=== PATIENT | female | born 1990 | race Caucasian/White ===

== ENCOUNTER 2024-11-21 05:51 | Inpatient (IN) | payer OTHER ==
[2024-11-21] MEDS ORDERED: Lanolin 100% Cream 7 GM Tube TOP PRN (05:55)
[2024-11-21] MEDS ORDERED: Sodium Chloride 0.9% 10 ML Syringe FLUSH PRN (05:55)
[2024-11-21] MEDS ORDERED: Misoprostol 200 MCG Tab PO PRN (05:55)
[2024-11-21] MEDS ORDERED: Sodium Chloride 0.9% 2.5 ML Syringe FLUSH PRN (05:55)
[2024-11-21] MEDS ORDERED: Methylergonovine 0.2 MG/1 ML Amp IM PRN (05:55)
[2024-11-21] MEDS ORDERED: Tranexamic Acid in NACL,ISO-OS 1,000 MG in Premix Bag 1 BAG IV PRN (05:55)
[2024-11-21] MEDS ORDERED: Water For Irrigation,Sterile 1,000 ML Container IRR PRN (05:55)
[2024-11-21] MEDS ORDERED: Carboprost Tromethamine 250 MCG/1 mL Vial IM PRN (05:55)
[2024-11-21] MEDS ORDERED: Lidocaine 1% 50 ML MDV INJECT PRN (05:55)
[2024-11-21] MEDS ORDERED: Docusate Sodium 100 MG Cap PO PRN (05:55)
[2024-11-21] MEDS ORDERED: Sodium Chloride 0.9% 20 ML SDV IV PRN (05:55)
[2024-11-21] MEDS ORDERED: Benzocaine/Menthol 20%-0.5% Spray 78 GM Cannister TOP PRN (05:55)
[2024-11-21] MEDS ORDERED: Oxytocin 10 Units/1 ML SDV ONE (05:56)
[2024-11-21] MEDS ORDERED: Oxytocin/0.9 % Sodium Chloride 30 UNIT/500 ML BAG ONE (05:56)
[2024-11-21] MEDS ORDERED: Lactated Ringers 1,000 ML IV SCH (06:00)
[2024-11-21] MEDS: Oxytocin/0.9 % Sodium Chloride 30 UNIT/500 ML BAG IV SCH (06:05)
[2024-11-21] MEDS: Misoprostol 200 MCG Tab ONE (06:18)
[2024-11-21] MEDS ORDERED: diphenhydrAMINE 50 MG Cap PO PRN (06:30)
[2024-11-21] MEDS ORDERED: Simethicone 80 MG Tab.Chew PO PRN (06:30)
[2024-11-21] MEDS: Ibuprofen 800 MG Tab PO PRN (08:09)
[2024-11-21] MEDS: Witch Hazel Medicated Pads 40/Jar TOP PRN (08:09)
[2024-11-21 09:10] LABS: HEMATOCRIT 38.2 % (37.0-47.0); MEAN CORPUSCULAR HEMOGLOBIN 28.3 pg (28.0-32.0); MEAN CORPUSCULAR VOLUME 83.2 fL (83.0-99.0); MEAN PLATELET VOLUME 10.6 fL (9.4-12.3); PLATELET COUNT,PLT 240 K/uL (150-400); RED BLOOD CELL COUNT 4.59 M/uL (4.10-5.30); WHITE BLOOD CELL COUNT,WBC 20.17 K/uL (3.9-11.3)
[2024-11-21] MEDS: Acetaminophen 500 MG Tab PO PRN (20:19)
[2024-11-22 05:06] LABS: AMPHETAMINES SCREEN, URINE NEGATIVE (CUTOFF=500); BARBITURATE SCREEN,URINE NEGATIVE (CUTOFF=200); BENZODIAZEPINES SCREEN,URINE NEGATIVE (CUTOFF=150); BUPRENORPHINE SCREEN,URINE NEGATIVE (CUTOFF=10); METHADONE SCREEN, URINE NEGATIVE (CUTOFF=200); METHAMPHETAMINES SCREEN, URINE NEGATIVE (CUTOFF=500); OXYCODONE SCREEN,URINE NEGATIVE (CUT0FF=100); PCP SCREEN,URINE NEGATIVE (CUTOFF=25); THC SCREEN,URINE 20 NG/ML NEGATIVE (CUTOFF=50)
[2024-11-22 05:52] LABS: HEMATOCRIT 37.1 % (37.0-47.0); HEMOGLOBIN 12.6 g/dL (12.0-16.0); MEAN CORPUSCULAR HEMOGLOBIN 28.6 pg (28.0-32.0); MEAN CORPUSCULAR VOLUME 84.3 fL (83.0-99.0); MEAN PLATELET VOLUME 10.2 fL (9.4-12.3); PLATELET COUNT,PLT 226 K/uL (150-400); WHITE BLOOD CELL COUNT,WBC 12.78 K/uL (3.9-11.3)
== END 2024-11-22 13:30 | disposition home or self-care (01) | DRG 807 ==
LOC: MW.OBCHECK 05:51 → MW.OB 05:52 → MW.OBCHECK 06:01 → MW.OB 06:01 → OBSVTOIN 06:05 → MW.OB 12:19
PROVIDERS: ADMIT Obstetrics & Gynecology; ATTEND Obstetrics & Gynecology Obstetrics
PROC: 10E0XZZ Delivery of Products of Conception, External Approach (ICD-10-PCS; principal; 2024-11-21)
DX: O42.02 Full-term premature rupture of membranes, onset of labor within 24 hours of rupture (principal); Z37.0 Single live birth; O69.1XX0 Labor and delivery complicated by cord around neck, with compression, not applicable or unspecified; O24.429 Gestational diabetes mellitus in childbirth, unspecified control; Z3A.40 40 weeks gestation of pregnancy
CPT/HCPCS: 36415; 59025; 59409; 80305-QW; 85027; 86592; 86850; 86900; 86901; A9270-GY; J2590